=== PATIENT | female | born 1960 | race Caucasian/White ===

== ENCOUNTER 2017-10-27 02:10 | Emergency (ER) | payer OTHER, MEDICAID, SELFPAY ==
[2017-10-27 02:45] VITALS: BP 134/86; PULSE 99; RESP 17; TEMP 36.3; O2SAT 94; BMI 24.1
[2017-10-27 02:57] LABS: Pregnancy Test Urine Negative (Negative)
[2017-10-27 03:02] LABS: Appearance Urine UA CLEAR; Bilirubin Urine UA NEGATIVE (NEGATIVE); Color Urine UA YELLOW; Glucose Urine UA NEGATIVE (Normal); Ketones Urine UA NEGATIVE (NEGATIVE); Leukocyte Esterase Urine UA 1+ (NEGATIVE); Nitrite Urine UA NEGATIVE (NEGATIVE); Occult Blood Urine UA NEGATIVE (Negative); Protein Urine UA NEGATIVE (Negative); Urobilinogen Urine UA 0.2 E.U./dL (0.2)
[2017-10-27 03:08] LABS: Squamous Epithelial Cell Urine 1-5 /HPF; WBC Urine 0-1/HPF (0-5/HPF)
[2017-10-27 03:09] LABS: Bacteria Urine Few (2-10); Culture Indicated Urine Specimen Cultured
[2017-10-27 03:16] LABS: Urine Amphetamines Negative (Negative); Urine Barbiturates Negative (Negative); Urine Benzodiazepines Negative (Negative); Urine Cocaine Negative (Negative); Urine MDMA Negative (Negative); Urine Methadone Negative (Negative); Urine Methamphetamines Negative (Negative); Urine Morphine/Opi cutoff 2000 Negative (Negative); Urine Oxycodone Negative (Negative); Urine Phencyclidine Negative (Negative); Urine Tetrahydrocannabinol Negative (Negative); Urine Tricyclic Antidepressant Negative (Negative)
[2017-10-27 04:30] LABS: Thyroid Stimulating Hormone 3.43 uIU/mL (0.47-4.68)
--- NOTE | 2017-10-27 04:41 | ED_ITS ---
HPI - Female Genitourinary General Chief complaint: Urogenital-Female Stated complaint: femal problems History of Present Illness HPI Narrative: HPI 57-year-old female presents complaining of having 2 bats in her vagina. Patient states that she can feel them there. Patient states that she is also had long-standing problems with mites under her skin that she can feel them crawling. Patient states that she is been treated with permethrin ?6 times without resolution symptoms. Patient denies drug use. Patient notes frequent sensation of needing to urinate without dysuria. M/S/F/SocHx notable for: please see HPI; remainder reviewed with patient and in chart. ROS: Negative constitutional, eye, cardiovascular, pulmonary, GI, , MSK, skin , neurologic, psychiatric, endocrine unless noted in the HPI. Exam Gen: pleasant, nontoxic-appearing, animated with rapid pressured speech. HEENT: NC, AT, PEERL, EOMI. Resp: Clear to auscultation bilaterally, normal work of breathing, no accessory muscle usage. Card: Regular rate and rhythm with no murmurs, rubs, or gallops, extremities warm and well perfused. GI: Non-tender to palpation throughout all quadrants, no focal tenderness at McBurney's point, negative Almaraz's sign, non-distended, no rebound or guarding. : No suprapubic tenderness to palpation. Chaperoned pelvic exam with visually normal female external genitalia. Vaginal canal without lesions or excoriations. Scant physiologic discharge appreciated, no bleeding or purulence. Visually closed cervix. No masses or tenderness on bimanual exam of the fundus or left or right adnexa.No CMT. no foreign bodies. MSK: No visible deformities, strength and tone without visually appreciable deficit. Skin: Normal color with no visible lesions. Neuro: AO x 3, no facial asymmetry, vision and hearing WNL. Psych: markedly unusual mood and affect. Labs / Imaging: UA - negative occult blood, negative nitrate, 1+ leukocyte esterase, few bacteria, 1-5 squamous epithelial cells, negative urine test. UDS negative TSH 3.43. MDM Previous chart, nursing note, labs, imaging, and vitals reviewed. A/P: 57-year-old female presents with animated pressured speech and a concern for having bats in her vagina, recent history notable for a parent mite treatment with permethrin x6 without resolution of subcutaneous crawling sensation and urinary frequency without dysuria. She chased exam without evidence of mites. Pelvic exam without foreign bodies. UDS negative. UA concerning for UTI. ROS, vitals, TSH, and exam are not suggestive of thyrotoxicosis. Presentation concerning for winston, however patient remains well compensated, intact insight, is without gross decompensation. Patient discharged with PCP follow-up recommended, cephalexin prescribed for UTI. Impression: UTI, delusions. (please reference below for remainder of encounter information) Related Data Previous Rx's Medication Instructions Recorded cephalexin 500 mg PO BID #20 cap 10/27/17 [facility] Social History Smoking Status: Unknown if ever smoked Exam Initial Vital Signs Initial Vital Signs: Vital Signs Temperature 97.3 F L 10/27/17 02:45 Pulse Rate 99 H 10/27/17 02:45 Respiratory Rate 17 10/27/17 02:45 Blood Pressure 134/86 H 10/27/17 02:45 Pulse Oximetry 94 10/27/17 02:45 Course Orders Ordered: ED Orders 10/27/17 02:40 Test Urine Stat Rapid Drug Screen, Urine Stat Urinalysis and Microscopic Stat Urine Culture Stat 10/27/17 03:35 Thyroid Stimulating Hormone Stat Vital Signs - 8 hr 10/27/17 02:45 Temperature 97.3 F L Pulse Rate 99 H Respiratory Rate 17 Blood Pressure 134/86 H Pulse Oximetry 94 MDM - Female Genitourinary Lab Data Lab Results 10/27/17 10/27/17 10/27/17 Range/Units 02:40 02:40 02:40 TSH (0.47-4.68) uIU/mL Urine Color Yellow Urine Appearance Clear Urine pH 7.0 (4.5-8.0) Ur Specific [place] 1.010 (1.000-1.035) Urine Protein Negative (Negative) Urine Glucose (UA) Negative (Normal) g/dL Urine Ketones Negative (NEGATIVE) Urine Occult Blood Negative (Negative) Urine Nitrate Negative (NEGATIVE) Urine Bilirubin Negative (NEGATIVE) Urine Urobilinogen 0.2 (0.2) E.U./dL Ur Leukocyte Esterase 1+ H (NEGATIVE) Urine WBC 0-1/hpf (0-5/HPF) Ur Squamous Epith Cells 1-5 /hpf Urine Bacteria Few (2-10) H (None) Ur Culture Indicated? Specimen cultured Micro UA Comment Not Reportable Urine Test Negative (Negative) Urine Opiates Screen Negative (Negative) Ur Oxycodone Screen Negative (Negative) Urine Methadone Screen Negative (Negative) Ur Barbiturates Screen Negative (Negative) U Tricyclic Antidepress Negative (Negative) Ur Phencyclidine Scrn Negative (Negative) Ur Amphetamines Screen Negative (Negative) U Methamphetamines Scrn Negative (Negative) Ur MDMA Scrn (Ecstasy) Negative (Negative) U Benzodiazepines Scrn Negative (Negative) Urine Cocaine Screen Negative (Negative) U Marijuana (THC) Screen Negative (Negative) 10/27/17 Range/Units 03:35 TSH 3.43 (0.47-4.68) uIU/mL Urine Color Urine Appearance Urine pH (4.5-8.0) Ur Specific [place] (1.000-1.035) Urine Protein (Negative) Urine Glucose (UA) (Normal) g/dL Urine Ketones (NEGATIVE) Urine Occult Blood (Negative) Urine Nitrate (NEGATIVE) Urine Bilirubin (NEGATIVE) Urine Urobilinogen (0.2) E.U./dL Ur Leukocyte Esterase (NEGATIVE) Urine WBC (0-5/HPF) Ur Squamous Epith Cells Urine Bacteria (None) Ur Culture Indicated? Micro UA Comment Urine Test (Negative) Urine Opiates Screen (Negative) Ur Oxycodone Screen (Negative) Urine Methadone Screen (Negative) Ur Barbiturates Screen (Negative) U Tricyclic Antidepress (Negative) Ur Phencyclidine Scrn (Negative) Ur Amphetamines Screen (Negative) U Methamphetamines Scrn (Negative) Ur MDMA Scrn (Ecstasy) (Negative) U Benzodiazepines Scrn (Negative) Urine Cocaine Screen (Negative) U Marijuana (THC) Screen (Negative) Discharge Plan Departure Patient Disposition: Home, Self-Care Clinical Impression: UTI (urinary tract infection), Delusions Activity Restrictions/Additional Instructions: You were in seen in the [facility] Emergency Department for evaluation of possible foreign bodies you vagina. No foreign bodies were found. You were noted to have bacteria in your urine concerning for urinary tract infection and have been prescribed cephalexin. Please follow up with your primary care physician for further evaluation of your sensation of having mites as well as your sensation or concern for having foreign bodies in your vagina. Please read and follow all of the instructions below. If you have any new symptoms or if you are at all concerned about your health please return immediately to the emergency department. If you do not have a primary care physician, If your child does not have a primary care physician, please contact [facility], [facility] at [phone], [facility] at [phone], or [facility] at [phone] to arrange follow up care. If you have health insurance, please also contact your insurer for a list of accepting providers under your policy, you may contact these providers for further health care. Your care today was limited to identifying and treating emergent medical problems only. Many people have subtle differences in their test results that require follow up with their outpatient physician(s) to correctly determine if this represents a normal variation or concerning abnormality with respect to your specific health. The care given to you today was limited to identifying and treating emergent medical problems - you need to request a copy of all of your medical records from today's visit and follow up with your outpatient physician(s) to review both today's visit and your overall health. You have an infection of your urinary tract. * Take 500 mg Cephalexin (Keflex) twice a day for the next 10 days. * Stay well hydrated. Please return to the emergency department if you develop any of the following: * Fevers or chills * Flank pain * Back pain * Blood in your urine * If you are otherwise concerned about your health If after 3 days of you still have pain on urination or a sensation that you need to urinate frequently please follow up with your primary care physician. Cephalexin (Brand Name: Keflex) * Take as directed on the prescription. * Take the full prescribed course of medications. SIDE EFFECTS: Diarrhea, dizziness, headache, or stomach upset may occur. If any of these effects persist or worsen, tell your doctor or pharmacist promptly. Tell your doctor immediately if any of these rare but very serious side effects occur: severe stomach/abdominal pain, persistent nausea/vomiting, yellowing eyes /skin, dark urine, change in the amount of urine, new signs of infection (e.g., fever, persistent sore throat), easy bruising/bleeding, mental/mood changes ( e.g., agitation, confusion). This medication may rarely cause a severe intestinal condition (Clostridium difficile-associated diarrhea) due to a resistant bacteria. This condition may occur during treatment or weeks to months after treatment has stopped. Tell your doctor immediately if you develop persistent diarrhea, abdominal or stomach pain/cramping, blood/mucus in your stool. Do not use anti-diarrhea products or narcotic pain medications if you have any of these symptoms because these products may make them worse. Use of this medication for prolonged or repeated periods may result in oral thrush or a new vaginal yeast infection. Contact your doctor if you notice white patches in your mouth, a change in vaginal discharge, or other new symptoms. A very serious allergic reaction to this drug is rare. However, seek immediate medical attention if you notice any symptoms of a serious allergic reaction, including: rash, itching/swelling (especially of the face/tongue/throat), severe dizziness , trouble breathing. This is not a complete list of possible side effects. If you notice other effects not listed above, contact your doctor or pharmacist. PRECAUTIONS: Before taking cephalexin, tell your doctor or pharmacist if you are allergic to it; or to penicillins or other cephalosporins (e.g., cefpodoxime ); or if you have any other allergies. This product may contain inactive ingredients, which can cause allergic reactions or other problems. Talk to your pharmacist for more details. Before using this medication, tell your doctor or pharmacist your medical history, especially of: kidney disease, stomach/ intestinal disease (e.g., colitis). This drug may make you dizzy. Do not drive, use machinery, or do any activity that requires alertness until you are sure you can perform such activities safely. Limit alcoholic beverages. The liquid form of this product may contain sugar. Caution is advised if you have diabetes. Ask your doctor or pharmacist about using this product safely. Kidney function declines as you grow older. This medication is removed by the kidneys. Therefore, older adults may be at greater risk for side effects while using this drug. During , this medication should be used only when clearly needed. Discuss the risks and benefits with your doctor. This medication passes into breast milk. Consult your doctor before breast-feeding. DRUG INTERACTIONS: Your doctor or pharmacist may already be aware of any possible drug interactions and may be monitoring you for them. Do not start, stop, or change the dosage of any medicine before checking with them first. Before using this medication, tell your doctor or pharmacist of all prescription and nonprescription/herbal products you may use, especially of: vaccines that contain live bacteria (e.g., typhoid, BCG), metformin, probenecid. This medication may decrease the effectiveness of combination-type control pills. This can result in . You may need to use an additional form of reliable control while using this medication. Consult your doctor or pharmacist for details. This medication may interfere with certain laboratory tests (including Aysha' test, certain urine glucose tests), possibly causing false test results. Make sure laboratory personnel and all your doctors know you use this drug. This document does not contain all possible interactions. Therefore, before using this product, tell your doctor or pharmacist of all the products you use. Keep a list of all your medications with you, and share the list with your doctor and pharmacist. Prescriptions: New cephalexin 500 mg capsule 500 mg PO BID Qty: 20 RF: 0
== END 2017-10-27 04:53 | disposition home or self-care (01) ==
PROVIDERS: Emergency Provider Emergency Medicine
DX: N39.0 Urinary tract infection, site not specified (principal); F22 Delusional disorders
CPT/HCPCS: 36415; 80305; 81001; 81025; 84443; 87086; 99283